=== PATIENT | female | born 2000 | race Caucasian/White ===

== ENCOUNTER 2020-05-10 21:44 | Outpatient (CLI) | payer OTHER, BC | END 2020-05-11 00:35 | disposition home or self-care (01) | LOC: GENOP 21:44 | DX: O99.891 Other specified diseases and conditions complicating pregnancy (principal); R25.2 Cramp and spasm; V49.9XXA Car occupant (driver) (passenger) injured in unspecified traffic accident, initial encounter; Z3A.32 32 weeks gestation of pregnancy | CPT/HCPCS: 59025 ==